=== PATIENT | female | born 1985 | race Caucasian/White ===

== ENCOUNTER 2017-04-08 22:30 | Emergency (ER) | payer MEDICAID ==
[2017-04-09 03:51] LABS: URINE PH (Dip) POC 5.5 (5.0-8.5)
[2017-04-09 03:51] LABS: URINE BLOOD (Dip) POC 1+ (NEGATIVE); URINE GLUCOSE (Dip) POC Negative (NEGATIVE); URINE KETONES (Dip) POC 1+ (NEGATIVE); URINE LEUKOCYTE EST (Dip) POC Trace (NEGATIVE); URINE NITRITE (Dip) POC Negative (NEGATIVE); URINE TOTAL PROTEIN POC Trace (NEGATIVE)
[2017-04-09 04:04] LABS: ADD MAN DIFF? NO
[2017-04-09 04:20] LABS: ADD UMIC YES; UR ASCORBIC ACID NEGATIVE (NEGATIVE); UR BACTERIA FEW /HPF (NONE SEEN); UR BILIRUBIN (Dip) NEGATIVE (NEGATIVE); UR BLOOD (Dip) 1+ mg/dL (NEGATIVE); UR CLARITY SLIGHTLY CLOUDY (CLEAR); UR COLOR YELLOW (YELLOW); UR GLUCOSE (Dip) NEGATIVE (NEGATIVE); UR KETONES (Dip) TRACE mg/dL (NEGATIVE); UR LEUKOCYTE ESTERASE (Dip) 2+ Leu/ul (NEGATIVE); UR MUCUS MODERATE /HPF (NONE SEEN); UR NITRITE (Dip) NEGATIVE (NEGATIVE); UR RBC 4 /HPF (0-5); UR SPECIFIC GRAVITY (Dip) 1.034 (1.003-1.030); UR SQUAMOUS EPITHELIAL CELL FEW /HPF (FEW); UR TOTAL PROTEIN (Dip) NEGATIVE (NEGATIVE); UR UROBILINOGEN (Dip) NEGATIVE (NEGATIVE); UR WBC 17 /HPF (0-5)
[2017-04-09 04:23] LABS: WHITE BLOOD COUNT 9.8 10^3/ul (4.8-10.8)
[2017-04-09 04:23] LABS: BASOPHILS % 0.3 % (0.0-2.0); EOSINOPHILS # 0.2 10^3/ul (0.0-0.5); EOSINOPHILS % 1.9 % (0.0-7.0); HEMATOCRIT 34.2 % (37.0-47.0); HEMOGLOBIN 11.8 g/dl (12.0-16.0); LYMPHOCYTES # 2.5 10^3/ul (0.8-2.9); LYMPHOCYTES % 25.7 % (15.0-51.0); MEAN CORPUSCULAR HEMOGLOBIN 29.6 pg (29.0-33.0); MEAN CORPUSCULAR HGB CONC 34.5 g/dl (32.0-37.0); MEAN CORPUSCULAR VOLUME 85.7 fl (82.0-101.0); MEAN PLATELET VOLUME 10.1 fl (7.4-10.4); MONOCYTE # 0.6 10^3/ul (0.3-0.9); MONOCYTES % 6.3 % (0.0-11.0); NEUTROPHIL # 6.4 10^3/ul (1.6-7.5); NEUTROPHILS % 65.5 % (39.0-77.0); PLATELET COUNT 221 10^3/UL (140-415); RED BLOOD COUNT 3.99 10^6/ul (4.20-5.40); RED CELL DISTRIBUTION WIDTH 12.7 % (11.5-14.5)
[2017-04-09] MEDS ORDERED: CEPHALEXIN 500 MG CAP PO (04:52)
[2017-04-09] MEDS: LIDOCAINE 1% (MDV) 20 ML INJ SC ×2 (05:00→05:27)
[2017-04-09] MEDS: CEFTRIAXONE 1 GM INJ IM ×2 (05:00→05:26)
== END 2017-04-09 05:28 | disposition home or self-care (01) ==
LOC: FTE 22:30
DX: O23.41 Unspecified infection of urinary tract in pregnancy, first trimester (principal); Z3A.12 12 weeks gestation of pregnancy
CPT/HCPCS: 76801; 81001; 81003; 84702; 85025; 86900; 86901; 99284-25

== ENCOUNTER 2017-07-14 10:41 | Outpatient (CLI) | payer MEDICAID ==
[2017-07-14] MEDS ORDERED: TERBUTALINE 1 ML (13:56)
[2017-07-14] MEDS: TERBUTALINE 1 MG/ML INJ SC (13:59)
[2017-07-14 14:25] LABS: ADD UMIC YES; UR ASCORBIC ACID NEGATIVE (NEGATIVE); UR BACTERIA FEW /HPF (NONE SEEN); UR BILIRUBIN (Dip) NEGATIVE (NEGATIVE); UR BLOOD (Dip) NEGATIVE (NEGATIVE); UR CLARITY CLEAR (CLEAR); UR COLOR STRAW (YELLOW); UR GLUCOSE (Dip) 1+ mg/dL (NEGATIVE); UR KETONES (Dip) NEGATIVE (NEGATIVE); UR LEUKOCYTE ESTERASE (Dip) 3+ Leu/ul (NEGATIVE); UR NITRITE (Dip) NEGATIVE (NEGATIVE); UR RBC 1 /HPF (0-5); UR SPECIFIC GRAVITY (Dip) 1.005 (1.003-1.030); UR SQUAMOUS EPITHELIAL CELL FEW /HPF (FEW); UR TOTAL PROTEIN (Dip) NEGATIVE (NEGATIVE); UR UROBILINOGEN (Dip) NEGATIVE (NEGATIVE); UR WBC 1 /HPF (0-5)
[2017-07-14 14:29] LABS: ADD MAN DIFF? NO
[2017-07-14 14:31] LABS: BASOPHIL # 0.1 10^3/ul (0.0-0.1); BASOPHILS % 0.4 % (0.0-2.0); EOSINOPHILS # 0.1 10^3/ul (0.0-0.5); EOSINOPHILS % 1.1 % (0.0-7.0); HEMATOCRIT 36.2 % (37.0-47.0); HEMOGLOBIN 12.1 g/dl (12.0-16.0); MEAN CORPUSCULAR HEMOGLOBIN 30.3 pg (29.0-33.0); MEAN CORPUSCULAR HGB CONC 33.4 g/dl (32.0-37.0); MEAN CORPUSCULAR VOLUME 90.5 fl (82.0-101.0); MEAN PLATELET VOLUME 9.8 fl (7.4-10.4); MONOCYTE # 0.8 10^3/ul (0.3-0.9); MONOCYTES % 7.1 % (0.0-11.0); NEUTROPHIL # 7.5 10^3/ul (1.6-7.5); NEUTROPHILS % 64.5 % (39.0-77.0); PLATELET COUNT 192 10^3/UL (140-415); RED CELL DISTRIBUTION WIDTH 13.2 % (11.5-14.5)
[2017-07-14 14:31] LABS: WHITE BLOOD COUNT 11.6 10^3/ul (4.8-10.8)
== END 2017-07-14 14:27 | disposition home or self-care (01) ==
LOC: OBT 10:41 → L-D 10:42 → OBT 14:27
DX: O62.9 Abnormality of forces of labor, unspecified (principal); O40.2XX0 Polyhydramnios, second trimester, not applicable or unspecified; Z3A.27 27 weeks gestation of pregnancy
CPT/HCPCS: 76817; 76818; 81001; 85025; 96372

== ENCOUNTER 2017-08-18 12:45 | Outpatient (CLI) | payer MEDICAID ==
[2017-08-18] MEDS: LACTATED RINGER'S 1,000 ML IV (14:28)
[2017-08-18] MEDS: TERBUTALINE 1 MG/ML INJ SC (14:29)
[2017-08-18] MEDS: BETAMET NA PHOS/AC(6 MG/ML) 5ML INJ IM (14:29)
[2017-08-18] MEDS ORDERED: NIFEdipine 10 MG CAP (15:48)
[2017-08-18] MEDS: NIFEdipine 10 MG CAP PO (15:54)
== END 2017-08-18 16:15 | disposition home or self-care (01) ==
LOC: OBT 12:45 → L-D 12:47 → OBT 16:15
DX: O40.3XX0 Polyhydramnios, third trimester, not applicable or unspecified (principal); O62.9 Abnormality of forces of labor, unspecified; Z3A.32 32 weeks gestation of pregnancy
CPT/HCPCS: 36415; 76817; 96360; 96361; 96372

== ENCOUNTER 2017-08-19 11:20 | Outpatient (CLI) | payer MEDICAID ==
[2017-08-19] MEDS: BETAMET NA PHOS/AC(6 MG/ML) 5ML INJ IM (12:18)
[2017-08-19] MEDS: TERBUTALINE 1 MG/ML INJ SC (13:14)
[2017-08-19] MEDS: NIFEdipine 10 MG CAP PO (13:50)
== END 2017-08-19 16:41 | disposition home or self-care (01) ==
LOC: OBT 11:20 → L-D 11:20 → OBT 16:41
DX: O36.8930 Maternal care for other specified fetal problems, third trimester, not applicable or unspecified (principal); O40.3XX0 Polyhydramnios, third trimester, not applicable or unspecified; Z3A.32 32 weeks gestation of pregnancy
CPT/HCPCS: 96372

== ENCOUNTER 2017-09-09 08:05 | Inpatient (IN) | payer MEDICAID ==
[2017-09-09] MEDS ORDERED: OXYTOCIN 30 UNITS/LR 500 ML IV ×3 (09:00→15:00)
[2017-09-09] MEDS ORDERED: LACTATED RINGER'S 1,000 ML IV* (09:00)
[2017-09-09] MEDS ORDERED: CARBOPROST 250 MCG INJ IM ×2 (09:00→15:00)
[2017-09-09] MEDS ORDERED: AMPICILLIN 1 GM/NS (PMX) 50 ML IVPB (09:00)
[2017-09-09] MEDS ORDERED: BUTORPHANOL 1 MG INJ IV (09:00)
[2017-09-09] MEDS ORDERED: LIDOCAINE 1% (MPF) 30 ML INJ INJ (09:00)
[2017-09-09] MEDS ORDERED: MISOPROSTOL 200 MCG TAB PR ×2 (09:00→15:00)
[2017-09-09] MEDS ORDERED: AMPICILLIN 2 GM/NS (PMX) 100 ML IVPB (09:00)
[2017-09-09] MEDS ORDERED: BUTORPHANOL 2 MG INJ IV (09:00)
[2017-09-09] MEDS ORDERED: METHYLERGONOVINE 0.2 MG INJ IM ×2 (09:00→15:00)
[2017-09-09 09:44] LABS: RUPTURE FETAL MEMBRANES POSITIVE (NEGATIVE)
[2017-09-09] MEDS ORDERED: DEXTROSE 5%-LR 1,000 ML IV (10:30)
[2017-09-09] MEDS: AMPICILLIN 2 GM/NS (PMX) 100 ML IV (11:15)
[2017-09-09 11:47] LABS: ADD MAN DIFF? NO
[2017-09-09 11:49] LABS: BASOPHIL # 0.1 10^3/ul (0.0-0.1); BASOPHILS % 0.6 % (0.0-2.0); EOSINOPHILS # 0.1 10^3/ul (0.0-0.5); EOSINOPHILS % 0.9 % (0.0-7.0); HEMATOCRIT 36.4 % (37.0-47.0); HEMOGLOBIN 12.5 g/dl (12.0-16.0); LYMPHOCYTES # 2.1 10^3/ul (0.8-2.9); LYMPHOCYTES % 20.4 % (15.0-51.0); MEAN CORPUSCULAR HEMOGLOBIN 30.1 pg (29.0-33.0); MEAN CORPUSCULAR HGB CONC 34.3 g/dl (32.0-37.0); MEAN CORPUSCULAR VOLUME 87.7 fl (82.0-101.0); MEAN PLATELET VOLUME 10.7 fl (7.4-10.4); MONOCYTE # 0.7 10^3/ul (0.3-0.9); MONOCYTES % 6.9 % (0.0-11.0); NEUTROPHIL # 7.3 10^3/ul (1.6-7.5); NEUTROPHILS % 70.5 % (39.0-77.0); PLATELET COUNT 216 10^3/UL (140-415); RED BLOOD COUNT 4.15 10^6/ul (4.20-5.40); RED CELL DISTRIBUTION WIDTH 12.7 % (11.5-14.5)
[2017-09-09 11:49] LABS: WHITE BLOOD COUNT 10.4 10^3/ul (4.8-10.8)
[2017-09-09] MEDS: OXYTOCIN 30 UNITS/LR 500 ML IV ×2 (11:56→11:57)
[2017-09-09] MEDS: AMPICILLIN 1 GM/NS (PMX) 50 ML IV (13:00)
[2017-09-09 13:27] LABS: PROTIME 12.2 Sec (11.9-14.9)
[2017-09-09] MEDS: BETAMET NA PHOS/AC(6 MG/ML) 5ML INJ IM (13:50)
[2017-09-09] MEDS ORDERED: BENZOCAINE 20% 56 ML SPRAY TOP (15:00)
[2017-09-09] MEDS ORDERED: ZOLPIDEM 5 MG TAB PO (15:00)
[2017-09-09] MEDS ORDERED: LANOLIN 7 GM TUBE TOP (15:00)
[2017-09-09] MEDS ORDERED: OXYCODONE/ASPIRIN (4.88/325) TAB PO ×2 (15:00)
[2017-09-09] MEDS ORDERED: WITCH HAZEL/GLYCERIN PAD PR (15:00)
[2017-09-09 15:12] LABS: RAPID PLASMA REAGIN NONREACTIVE (NR)
[2017-09-09] MEDS: IBUPROFEN 600 MG TAB PO (17:28)
[2017-09-09 19:49] LABS: HEMATOCRIT 30.6 % (37.0-47.0); HEMOGLOBIN 10.4 g/dl (12.0-16.0)
[2017-09-09] MEDS: DIPHTH/TET/ACEL PERTUSS (ADULT) 0.5 ML VIAL IM* (21:21)
[2017-09-09] MEDS: SENNA/DOCUSATE NA (8.6MG/50MG) TAB PO (21:30)
[2017-09-09] MEDS ORDERED: NIFEdipine 10 MG CAP PO (22:00)
[2017-09-11] MEDS ORDERED: DIPHTH/TET/ACEL PERTUSS (ADULT) 0.5 ML VIAL IM* (09:00)
== END 2017-09-09 22:00 | disposition home or self-care (01) | DRG 774 ==
LOC: OBT 08:05 → L-D 08:05 → OBT 09:00 → L-D 09:00 → PP1 13:48
PROVIDERS: Obstetrics & Gynecology
PROC: 10E0XZZ Delivery of Products of Conception, External Approach (ICD-10-PCS; principal; 2017-09-09)
PROC: 4A1HXCZ Monitoring of Products of Conception, Cardiac Rate, External Approach (ICD-10-PCS; 2017-09-09)
DX: O45.93 Premature separation of placenta, unspecified, third trimester (principal); O60.14X0 Preterm labor third trimester with preterm delivery third trimester, not applicable or unspecified; O35.8XX0 Maternal care for other (suspected) fetal abnormality and damage, not applicable or unspecified; Z3A.35 35 weeks gestation of pregnancy; Z37.0 Single live birth
CPT/HCPCS: 76815; 84112; 85014; 85018; 85025; 85610; 85730; 86592; 86850; 86900; 86901; 88307; 90715